=== PATIENT | female | born 1985 | race Caucasian/White ===

== ENCOUNTER → 2024-06-17 09:23 | Outpatient (CLI) | payer OTHER, SELFPAY ==
[2024-06-17 19:29] LABS: Add Manual Diff / Slide Review NO; Basophils Absolute Auto 0 /uL (0-100); Basophils Percent Auto 0.4 % (0-2); Eosinophils Absolute Auto 500 /uL (0-450); Eosinophils Percent Auto 6.9 % (2-4); Hematocrit 41.4 % (36-46); Lymphocytes Absolute Auto 1800 /uL (1100-4500); Lymphocytes Percent Auto 25.5 % (25-40); Mean Corpuscular HGB Conc 33.9 % (30-36); Mean Corpuscular Hemoglobin 32.5 PG (26-34); Mean Corpuscular Volume 95.7 fL (80-100); Monocytes Absolute Auto 500 /uL (0-900); Monocytes Percent Auto 7.3 % (3-14); Neutrophils Absolute Auto 4100 /uL (1500-7000); Neutrophils Percent Auto 59.9 % (50-75); Platelet Count 306 X10^3/uL (150-400); Red Blood Cell Count 4.32 X10^6/uL (4.0-5.2); Red Cell Distribution Width 12.8 % (11.6-14.8); White Blood Cell Count 6.9 X10^3/uL (4.5-11.0)
[2024-06-17 19:43] LABS: Cholesterol 210 mg/dL (140-199); HDL Cholesterol 108 mg/dL (40-60); LDL Cholesterol Calculated 82 mg/dL (<100); Triglycerides 98 mg/dL (35-150)
[2024-06-19 15:45] LABS: HIV 1 & 2 Ab/Ag 4th Gen Combo NEGATIVE (NEGATIVE); Hep C Virus Ab w/Reflex Quant NEGATIVE s/c (NEGATIVE)
== END ==
PROVIDERS: PCP Physician Assistant; Visit Provider Physician Assistant
DX: Z13.6 Encounter for screening for cardiovascular disorders (principal); K62.5 Hemorrhage of anus and rectum; Z11.4 Encounter for screening for human immunodeficiency virus [HIV]; Z11.59 Encounter for screening for other viral diseases
CPT/HCPCS: 80061; 85025; 86803; 87389

== ENCOUNTER 2025-04-04 19:56 | Emergency (ER) | payer BC, SELFPAY ==
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
[2025-04-04 20:00] VITALS: BP 126/79; PULSE 108; RESP 16; TEMP 36.7; O2SAT 96; BMI 18.2
[2025-04-04 20:38] LABS: Appearance Urine UA CLEAR; Bilirubin Urine UA NEGATIVE (NEGATIVE); Color Urine UA YELLOW; Glucose Urine UA NEGATIVE (Negative); Ketones Urine UA NEGATIVE (NEGATIVE); Leukocyte Esterase Urine UA NEGATIVE (NEGATIVE); Nitrite Urine UA NEGATIVE (Negative); Occult Blood Urine UA TRACE-INTACT (Negative); Protein Urine UA NEGATIVE (Negative); Specific Gravity Urine UA <=1.005 (1.000-1.035); Urobilinogen Urine UA 0.2 E.U./dL (0.2)
[2025-04-04 20:40] LABS: Ur Specific Gravity Normal (Normal); pH Urine UA 6.0 (4.5-8.0)
[2025-04-04 20:41] LABS: UR Morphine/Opiate cutoff 300 Negative (Negative); Urine MDMA Negative (Negative); Urine Methamphetamines Negative (Negative); Urine Tetrahydrocannabinol Negative (Negative); Urine Tricyclic Antidepressant Negative (Negative)
[2025-04-04 20:44] LABS: Culture Indicated Urine Cult Not Indicated
[2025-04-04] MEDS: LIDOCAINE 2% INJ MDV 20ML 10 ML INJ (22:03)
[2025-04-04 22:26] LABS: COVID19 -Nasal RAPID Negative (Negative)
[2025-04-04 23:16] LABS: Add Manual Diff / Slide Review NO; Hematocrit 38.5 % (36-46); Hemoglobin 13.5 g/dL (12.0-16.0); Lymphocytes Absolute Auto 1800 /uL (1100-4500); Mean Corpuscular HGB Conc 35.2 % (30-36); Mean Corpuscular Hemoglobin 34.7 PG (26-34); Mean Corpuscular Volume 98.5 fL (80-100); Platelet Count 343 X10^3/uL (150-400)
[2025-04-04 23:27] LABS: Alanine Aminotransferase 32 IU/L (<35); Albumin 4.5 g/dL (3.5-5.0); Albumin Globulin Ratio 1.5 (1.0-2.8); Alkaline Phosphatase 108 U/L (38-126); Blood Urea Nitrogen 10 mg/dL (7-17); Calcium 8.8 mg/dL (8.4-10.2); Carbon Dioxide 23 mmol/L (22-32); Chloride 107 mmol/L (98-107); Estimated Glomerular Filt Rate > 60 mL/min (>60); Ethanol (ETOH) 245 mg/dL (<10); Globulin 3.1 g/dL (1.7-4.1); Glucose 113 mg/dL (70-99); HEMOLYSIS < 15 (0-50); Potassium 3.7 mmol/L (3.4-5.1); Salicylate < 1.0 mg/dL (<20); Sodium 141 mmol/L (137-145); Total Protein 7.6 g/dL (6.3-8.2)
[2025-04-04 23:57] LABS: Thyroid Stimulating Hormone 0.914 uIU/mL (0.47-4.68)
--- NOTE | 2025-04-05 00:04 | PC.NURSE ---
LUMBER CHECKER note: Patient asked sitter if we had contacted mental health. So I spoke with patient. Told patient I had contacted the DCR and they were on their way. Patient asked what the DCR was. I told her it's the designated crisis response team. Patient then asked well do I have to stay here? I want to go. I said to the patient Well I think right now you need to stay here and that's the plan. Patient rolled her eyes. You think or do you know? I said I don't like the way you're talk to me and those implications. The plan is per the police is for you to hang out here and talk to DCR. That's what you have to do. She huffed and rolled her eyes again at me. I told her I would go work on some other things. Syd VICTORIA heard the conversation. Syd VICTORIA came up to me and said that patient wanted to see the paperwork and patient was in the hallway. Patient was in the hallway with her purse and ice pack outside her room. I walked up and told her you are being detained. You need to stay here. Patient requested to see the paperwork. I told her I would get her a copy for her to see, but I needed her to stay in her room. I explained for your safety and others safety I need you to stay in your room. Patient rolled her eyes. I got the police paperwork and explained it to her. I asked if she had any questions. Patient did not. Patient then asked when are they going to get here? I explained I didn't know, but I did dispatch them.
--- NOTE | 2025-04-05 01:16 | PC.NURSE ---
Pt has made several attempt to leave, she does not want to stay for DCR eval, pt is SHAWNA by Michael Jarquin
--- NOTE | 2025-04-05 01:18 | PC.NURSE ---
Pt kirill, provider spoke to pt several time about the SHAWNA process, provider encouraged pt to remain in her room and to back to her room when she left it. At 0116 Pt left the department.
== END 2025-04-05 01:19 | disposition left against medical advice (07) ==
PROVIDERS: Emergency Provider Student in an Organized Health Care Education/Training Program; PCP Physician Assistant
DX: S09.90XA Unspecified injury of head, initial encounter (principal); S01.81XA Laceration without foreign body of other part of head, initial encounter; F10.129 Alcohol abuse with intoxication, unspecified; Y90.8 Blood alcohol level of 240 mg/100 ml or more; V89.2XXA Person injured in unspecified motor-vehicle accident, traffic, initial encounter
CPT/HCPCS: 12014; 36415; 70450; 72125; 80053; 80305; 80320; 80329; 81001; 81025; 84443; 85025; 87635; 99284; 99291; 99292; G0480